=== PATIENT | female | born 1995 | race Caucasian/White ===

== ENCOUNTER → 2022-04-12 08:56 | Outpatient (CLI) | payer BC, OTHER, SELFPAY ==
--- NOTE | 2022-04-12 09:03 | DI.US.S_ITS ---
PROCEDURE: US OB >= 14 WEEKS FETUS INDICATIONS: ANATOMY SCAN OUTSIDE/PRIOR DATING DATA: Last menstrual period (LMP): 11/17/2021. LMP-based estimated date of delivery (JOSSUE): 08/24/2022. First dating scan (date and location): 04/12/2022. Estimated date of delivery (JOSSUE) from first dating scan: 08/25/2022. TECHNIQUE: Real-time scanning was performed of the fetus, with image documentation and biometric measurements. Endovaginal scanning: Not performed. COMPARISON: None. FINDINGS: General: A single living intrauterine gestation is present. Presentation: Vertex. Placenta: Placental position is posterior , without previa. Amniotic fluid index: 14.1 cm, normal range is 5-24 cm. Single deepest vertical pocket is 4.5 cm. heart rate: 140 beats per minute. Maternal cervical canal: 3.4 cm long. Normal lower limit is 2.5 cm. biometrics: Biparietal diameter: 5.0 centimeters, 21 weeks 0 days Head circumference: 17.9 centimeters, 20 weeks 2 days Abdominal circumference: 16.0 centimeters, 21 weeks 1 day Femur length: 3.3 centimeters, 20 weeks 1 day estimated gestational age: 20 weeks 6 days Composite gestational age from present scan: 20 weeks 5 days Estimated weight and percentile: 369 grams, 35th percentile Anatomic survey: Neuro: Ventricles are non-dilated at less than 10 mm. Cisterna magna is normal at 3-11 mm. Cerebellum is normal in size and morphology. Nuchal skin fold: Normal at less than 6 mm between 14-21 weeks gestational age. Face: Nose and lips, facial profile are normal. Spine: No evidence for spina bifida. Heart: 4-chambered heart is present, with normal ventricular outflow tracts. Left ventricular echogenic intracardiac focus. Diaphragm: Diaphragm is intact. Stomach: Left-sided stomach is present. Kidneys: No hydronephrosis. Normal is less than 5 mm in 2nd trimester, less than 7 mm in 3rd trimester. Cord: 3-vessel cord has orthotopic insertion. Bladder: Normal in size. Extremities: All 4 extremities identified. IMPRESSION: 1. Single living intrauterine . 2. A left ventricular echogenic intracardiac focus is present. The 2nd trimester anatomy survey is otherwise normal. Recommend correlation with maternal age, ethnicity, and aneuploidy risk assessment results such as serum screening or cell free DNA testing as this finding in the context of low risk cell free DNA screening is likely a normal variant and not clinically significant. We strive to produce accurate, complete, and clear reports of imaging services. To assist us in improving patient care, this report was composed using standard report templates and voice recognition software. Therefore, it may contain abnormal punctuation, insertions and/or omissions. Occasional wrong-word or sound-alike substitutions may occur. Though we review the report and make efforts to correct it, we do recommend that the report be read carefully in proper context to recognize any text inaccuracies. Dictated by: Redd Wong M.D. on 04/12/2022 at 12:50 Approved by: Redd Wong M.D. on 04/12/2022 at 13:04
== END ==
PROVIDERS: Referring Provider Nurse Practitioner Obstetrics & Gynecology; Visit Provider Nurse Practitioner Obstetrics & Gynecology
DX: Z34.92 Encounter for supervision of normal pregnancy, unspecified, second trimester (principal); Z3A.20 20 weeks gestation of pregnancy
CPT/HCPCS: 76811

== ENCOUNTER → 2022-05-15 07:52 | Outpatient (CLI) | payer OTHER, MEDICAID, SELFPAY ==
[2022-05-15 09:28] LABS: Hematocrit 34.9 % (36-46)
[2022-05-15 10:08] LABS: Glucose Fasting 77 mg/dL (70-100)
[2022-05-15 10:09] LABS: Glucose 1 Hour 169 mg/dL (70-170)
[2022-05-15 13:39] LABS: Glucose Tol Interpretation INTERPRETATION
[2022-05-15 13:48] LABS: Mean Corpuscular HGB Conc 34.3 % (30-36); Mean Corpuscular Hemoglobin 30.4 PG (26-34); Mean Corpuscular Volume 88.7 fL (80-100); Platelet Count 173 X10^3/uL (150-400); Red Blood Cell Count 3.95 X10^6/uL (4.0-5.2); Red Cell Distribution Width 13.7 % (11.6-14.8); White Blood Cell Count 7.7 X10^3/uL (4.5-11.0)
[2022-05-15 16:50] LABS: Glucose 2 Hour 100 mg/dL (70-140)
== END ==
PROVIDERS: Referring Provider Nurse Practitioner Obstetrics & Gynecology; Visit Provider Nurse Practitioner Obstetrics & Gynecology
DX: Z34.90 Encounter for supervision of normal pregnancy, unspecified, unspecified trimester (principal); Z13.1 Encounter for screening for diabetes mellitus; Z3A.26 26 weeks gestation of pregnancy
CPT/HCPCS: 36415; 82951; 82952; 85027

== ENCOUNTER 2022-08-26 16:48 | Inpatient (IN) | payer OTHER, MEDICAID, SELFPAY ==
--- NOTE | 2022-08-26 17:02 | P.HPOB_ITS ---
OB HPI Date/Time Date of admission: 08/26/22 Date Patient Seen: 08/26/22 Time Patient Seen: 17:02 History of Present Condition Chief complaint: OB : 1 Para: 0 Estimated Date of Delivery: 08/24/22 Estimated Gestational Age (weeks): 40.2 Narrative: Joel Oates is a 27 year old female @ [id number] by LMP and 10 wk US who presents for evaluation of labor. Began to feel contractions around noon that steadily progressed in frequency and intensity, now breathing through strong contractions every 3-4 minutes. Some bloody mucus discharge this afternoon. No leaking of fluid. Desires epidural. Partner and mother are present and supportive. Uncomplicated care w/ CNMs. History of Present care: good care, initiated at week # (10), number of visits (11) and pounds weight gain (40) Dating criteria: LMP confirmed by 1st trimester US Ultrasounds: normal mid trimester US Obstetrical complications: none Medical complications: none Preadmission Labs Blood type: A (-) negative -: Antibody screen: negative, GBS status: negative, HBsAG: negative, HIV: negative and RPR/VDLR: negative -: Chlamydia screen: not detected and Gonorrhea screen: not detected -: Rubella: immune and Varicella: immune HCT: 34.9 HCAB: negative Cell-free DNA: Negative Narrative: 2hr gtt: 77, 169, 100 Evaluation Evaluation Baseline heart rate: 125 Variability: Moderate (11-25) monitor accelerations: Present Monitor Decelerations: Absent Contraction Frequency (minutes): 4 Uterine Contraction Intensity: Moderate Status: Category l Dilation (cm): 5 Effacement (%): 90 Dilation: >/=5 cm Effacement: >/=80% station: -1 Position of cervix: mid Consistency: soft King score: 11 [facility] Medical History (Updated 08/26/22 @ 17:11 by Kanwal Juarez CNM) Anxiety Family History (Updated 08/26/22 @ 17:11 by Kanwal Juarez CNM) Grandmother Age: 85 Diabetes mellitus Father Depression Meds Home Medications and Allergies Allergies Allergy/AdvReac Type Severity Reaction Status Date / Time amoxicillin [AMOXICILLIN] Allergy Unknown Unverified 10/03/17 12:33 Review of Systems Review of Systems ROS: Yes All systems reviewed with the patient and are negative except as otherwise documented OB Exam Vital signs Blood Pressure: 135/78 Pulse Rate: 74 Temperature: 36.7 F Resp Effort & Inspection: normal respiratory effort and able to speak in complete sentences Auscultation: clear to auscultation bilaterally Cardio Rate: regular rate Rhythm: regular rhythm Heart Sounds: S1 normal and S2 normal Presentation: vertex Assessment and Plan Assessment and Plan Assessment and Plan narrative: A: Term [place] Active labor Rh NEGATIVE (Partner also Rh Negative) No indication for GBS prophylaxis Cat I FHR tracing P: Admit, routine labor orders. Expectant management of labor. Epidural consult when requested. Reassess in 4 hours or sooner, PRN.
[2022-08-26 17:16] VITALS: BP 135/78; PULSE 74; TEMP 2.6; TEMP 36.7
[2022-08-26 17:45] LABS: Add Manual Diff / Slide Review NO; Basophils Absolute Auto 0 /uL (0-100); Basophils Percent Auto 0.3 % (0-2); Eosinophils Absolute Auto 0 /uL (0-450); Eosinophils Percent Auto 0.1 % (2-4); Hematocrit 34.5 % (36-46); Hemoglobin 11.5 g/dL (12.0-16.0); Lymphocytes Absolute Auto 1700 /uL (1100-4500); Lymphocytes Percent Auto 16.3 % (25-40); Mean Corpuscular HGB Conc 33.4 % (30-36); Mean Corpuscular Hemoglobin 27.5 PG (26-34); Mean Corpuscular Volume 82.2 fL (80-100); Monocytes Absolute Auto 800 /uL (0-900); Monocytes Percent Auto 7.3 % (3-14); Neutrophils Absolute Auto 7900 /uL (1500-7000); Platelet Count 149 X10^3/uL (150-400); Red Cell Distribution Width 14.5 % (11.6-14.8); White Blood Cell Count 10.5 X10^3/uL (4.5-11.0)
[2022-08-26 18:05] LABS: COVID19 - ADMIT (NP swab/PCR) Negative (Negative)
[2022-08-26 18:37] VITALS: BP 130/74
--- NOTE | 2022-08-27 02:03 | PM.OBPRVD ---
Labor & Delivery Delivery date: 08/27/22 Intrapartal Events: None Cervical ripening method: none Induction method: none Delivery monitor: external FHT and external uterine Route of delivery: Episiotomy description: None L&D Laceration Description: None Estimated blood loss (mL): 100 Anesthesia Type: Epidural Narrative: Patient worked with anesthesia for several hours to achieve adequate pain relief. Progressed quickly to C/C/+2 at 0020. Coaching, encouragement and strong maternal efforts led to NSVB of a vigorous baby girl in REJI position. [place] was delivered through a single loose nuchal cord and the shoulders delivered easily, without additional maneuvers. [place] placed on maternal abdomen for drying and skin to skin. 30 units of pitocin in 500mL LR was started at 250mL/hr for AMTSL. After cessation of pulsation, the cord was double clamped by CNM and cut by FOB. Gentle cord traction and a single maternal push led to spontaneous, Schultze delivery of an apparently intact placenta, membranes and 3VC. Fundus immediately firm and bleeding minimal. QBL 100mL. both mother and baby stable and skin to skin as I left the room. Baby 1: gender: Female Presentation: vertex Position: Left Occiput Anterior Placenta delivery description: Spontaneous Cord Vessel Description: 3 Vessels, Nuchal Cord and Loose score (1 min): 8 score (5 min): 9 weight: 3.84 kg Plan for aftercare: Routine care
[2022-08-27] MEDS: KETOROLAC 30 MG/ML VIAL IV (04:00)
[2022-08-27] MEDS: DERMOPLAST SPRAY 20% 60 ML 1 SPRAY TOP (04:13)
[2022-08-27] MEDS: LANOLIN OINT 7 GM 1 APPLIC TOP (04:14)
--- NOTE | 2022-08-27 05:20 | PC.NURSE ---
Patient given 1 bag of premix oxytocin after delivery to control bleeding. Unable to document it in MAR
[2022-08-27] MEDS: ACETAMINOPHEN 325 MG TABLET 650 MG PO (18:08)
[2022-08-27] MEDS: IBUPROFEN 600 MG TABLET PO (18:09)
--- NOTE | 2022-08-28 07:48 | P.DS_ITS ---
Discharge Providers Provider Date of admission: 08/26/22 16:48 Discharge Date: 08/28/22 Consults: 08/26/22 16:59 Consult to Anesthesiology Urgent Comment: Consulting Provider: Anesthesiologist Reason for consultation: Epidural Has provider been notified: No 08/28/22 02:02 Consult to Principal Account Clerk Routine Comment: Discharge provider: Kanwal Juraez CNM Summary Hospital Course Date Patient Seen: 08/28/22 Time Patient Seen: 07:48 Diagnoses: O80 Hospital Course: PPD1: Stable s/p NSVB with intact perineum. Voiding, ambulating and independently. Tolerating a general diet. Pain is well controlled with PO medication. Vaginal bleeding is light without clots. Feeling ready for dischargw to home. Partner remains present and supportive. Peripartum Data Infant Delivery Method: Natural Vaginal Laceration Description: None Episiotomy description: None Procedures: 080 complications: none 1: Gender: Female Disposition of : home Discharge Diagnosis (1) Encounter for full-term uncomplicated delivery: Status: Acute Status at Discharge Cognitive/behavioral status at discharge: oriented and calm Functional status at discharge: independent ambulation Overall status at discharge: patient is progressing back to baseline Time Spent with Patient Time attestation: Total time spent providing and/or coordinating discharge services: Time spent: Less than 30 minutes Objective Labs 08/26/22 17:30 Exam Vital Signs (past 8 hours): BP 103/52mmHg, HR 93bpm, RR 16/min, T 98.3F Temporal Other: Fundus firm @ U-1, lochia light, no clots. Perineum intact. Discharge Plan Discharge Plan Patient Disposition: Home Discharge orders & Medications Prescriptions: New ibuprofen 600 mg Tablet 600 mg PO Q6HR PRN (Reason: Pain, Mild (1-3)) 14 Days Qty: 60 0RF No Action No Known Home Medications Follow up/Referrals: Kanwal Juarez CNM [[facility]] - (Follow-up 2wk 09/04/22 @ 2pm Follow-up 6wk 10/03/22 @ 1:45pm) Diet/Activity/Treatments Diet: Diet as Tolerated and Regular Activity: pelvic rest x 6 weeks Skin/Wound/Dressing Care Report to your healthcare provider any signs of infection, such as:: chills, fever, increased pain, unusual drainage and unusual redness Visit Report/Discharge Packet Instructions: Depression Stand Alone Forms: Patient Portal/API
[2022-08-28] MEDS: ACETAMINOPHEN 325 MG TABLET 650 MG PO (08:30)
[2022-08-28] MEDS: IBUPROFEN 600 MG TABLET PO (08:30)
== END 2022-08-28 10:00 | disposition home or self-care (01) | DRG 560 ==
PROVIDERS: Admitting Provider Nurse Practitioner Obstetrics & Gynecology; Referring Provider Nurse Practitioner Obstetrics & Gynecology; Visit Provider Nurse Practitioner Obstetrics & Gynecology
DX: O80 Encounter for full-term uncomplicated delivery (principal); Z3A.40 40 weeks gestation of pregnancy; Z37.0 Single live birth
CPT/HCPCS: 36415; 59050; 85025; 86850; 86900; 86901; 87635; C9803; G0379; J1885; J3010

== ENCOUNTER → 2024-07-04 13:26 | Outpatient (CLI) | payer OTHER, SELFPAY ==
--- NOTE | 2024-07-04 13:27 | DI.US.S_ITS ---
PROCEDURE: US OB >= 14 WEEKS FETUS INDICATIONS: ANATOMY SCAN OUTSIDE/PRIOR DATING DATA: Last menstrual period (LMP): 02/11/24. LMP-based estimated date of delivery (JOSSUE): 11/17/24. First dating scan (date and location): Not available. Estimated date of delivery (JOSSUE) from first dating scan: Not applicable. The calculations are made using the working JOSSUE of 11/17/24. TECHNIQUE: Real-time scanning was performed of the fetus, with image documentation and biometric measurements. Endovaginal scanning: No COMPARISON: Non FINDINGS: General: A single living intrauterine gestation is present. Presentation: Vertex. Placenta: Placental position is anterior , without previa. There is a velamentous placental cord insertion. Amniotic fluid index: 19.2 cm, normal range is 5-24 cm. Single deepest vertical pocket is 5.6 cm. heart rate: 140 beats per minute. Maternal cervical canal: Closed and 3.0 cm long. Normal lower limit is 2.5 cm. biometrics: Biparietal diameter: 5.2 cm, 21 weeks five days Head circumference: 18.3 cm, 20 weeks five days Abdominal circumference: 15.9 cm, 21 weeks 0 days Femur length: 3.3 cm, 20 weeks three days Clinically estimated gestational age: 20 weeks four days Composite gestational age from present scan: 21 weeks 0 days Estimated weight and percentile: 378 g, 58th percentile Anatomic survey: Neuro: Ventricles are non-dilated at less than 10 mm. Cisterna magna is normal at 3-11 mm. Cerebellum is normal in size and morphology. Nuchal skin fold: Normal at less than 6 mm between 14-21 weeks gestational age. Face: Nose and lips, facial profile are normal. Spine: No evidence for spina bifida. Heart: 4-chambered heart is present, with normal ventricular outflow tracts. Diaphragm: Diaphragm is intact. Stomach: Left-sided stomach is present. Kidneys: No hydronephrosis. Normal is less than 5 mm in 2nd trimester, less than 7 mm in 3rd trimester. Cord: 3-vessel cord has orthotopic insertion. Bladder: Normal in size. Extremities: All 4 extremities identified. IMPRESSION: Single live intrauterine with estimated weight at the 50th percentile. Symmetric growth and normal anatomy. Anterior placenta with a velamentous cord insertion. Closed cervix and normal amniotic fluid volume. We strive to produce accurate, complete, and clear reports of imaging services. To assist us in improving patient care, this report was composed using standard report templates and voice recognition software. Therefore, it may contain abnormal punctuation, insertions and/or omissions. Occasional wrong-word or sound-alike substitutions may occur. Though we review the report and make efforts to correct it, we do recommend that the report be read carefully in proper context to recognize any text inaccuracies. Dictated by: Ramona Davis M.D. on 07/04/2024 at 22:14 Approved by: Ramona Davis M.D. on 07/04/2024 at 22:21
== END ==
PROVIDERS: Referring Provider Advanced Practice Midwife; Visit Provider Advanced Practice Midwife
DX: O43.122 Velamentous insertion of umbilical cord, second trimester (principal); Z3A.21 21 weeks gestation of pregnancy
CPT/HCPCS: 76811

== ENCOUNTER → 2024-08-22 07:38 | Outpatient (CLI) | payer OTHER, SELFPAY ==
--- NOTE | 2024-08-22 07:39 | DI.US.S_ITS ---
PROCEDURE: US OB LIMITED INDICATIONS: VELAMENTOUS CORD INSERTION. GROWTH. OUTSIDE/PRIOR DATING DATA: Last menstrual period (LMP): 02/11/24. LMP-based estimated date of delivery (JOSSUE): 11/17/24. First dating scan (date and location): Not available. Estimated date of delivery (JOSSUE) from first dating scan: Not applicable. The calculations are made using the working JOSSUE of 11/17/24. TECHNIQUE: Real-time scanning was performed of the fetus for biometric measurements, with image documentation. Color and pulse Doppler interrogation was also performed of the umbilical artery near its insertion into the placenta. Endovaginal scanning: Not performed COMPARISON: None. FINDINGS: General: A single living intrauterine gestation is present. Presentation: Vertex. Placenta: Placental position is anterior , without previa. Amniotic fluid index: 18.6 cm, normal range is 5-24 cm. Single deepest vertical pocket is 6.1 cm. heart rate: 143 beats per minute. Maternal cervical canal: Closed and 3.6 cm long. Normal lower limit is 2.5 cm. Biparietal diameter 7.6 cm, 30 weeks two days Head circumference 26.9 cm, 29 weeks three days Abdominal circumference 25.3 cm, 29 weeks three days Femur length 5.5 cm, 29 weeks 0 days Clinically estimated gestational age 27 weeks four days Composite gestational age today 29 weeks four days Estimated weight 1380 g, 95th percentile There is a velamentous cord insertion along the superior aspect of the anterior placenta. No other placental abnormalities were demonstrated. IMPRESSION: Single live intrauterine with estimated weight at the 95th percentile. Composite gestational age is two weeks ahead of the expected gestational age. Velamentous cord insertion along the superior aspect of the anterior placenta. We strive to produce accurate, complete, and clear reports of imaging services. To assist us in improving patient care, this report was composed using standard report templates and voice recognition software. Therefore, it may contain abnormal punctuation, insertions and/or omissions. Occasional wrong-word or sound-alike substitutions may occur. Though we review the report and make efforts to correct it, we do recommend that the report be read carefully in proper context to recognize any text inaccuracies. Dictated by: Ramona Davis M.D. on 08/22/2024 at 13:41 Approved by: Ramona Davis M.D. on 08/22/2024 at 13:55
== END ==
PROVIDERS: Referring Provider Advanced Practice Midwife; Visit Provider Advanced Practice Midwife
DX: O43.122 Velamentous insertion of umbilical cord, second trimester (principal); Z3A.27 27 weeks gestation of pregnancy
CPT/HCPCS: 76815

== ENCOUNTER → 2024-10-10 14:03 | Outpatient (CLI) | payer OTHER, SELFPAY ==
--- NOTE | 2024-10-10 14:05 | DI.US.S_ITS ---
PROCEDURE: US OB FOLLOW UP INDICATIONS: GROWTH OUTSIDE/PRIOR DATING DATA: The calculations are made using the JOSSUE of 11/17/2024. TECHNIQUE: Real-time scanning was performed of the fetus, with image documentation and biometric measurements. Endovaginal scanning: Not performed COMPARISON: [facility], OB LIMITED, 08/22/2024, 8:09. FINDINGS: General: A single living intrauterine gestation is present. Presentation: Vertex. Placenta: Placental position is anterior , without previa. Amniotic fluid index: 15.2 cm, normal range is 5-24 cm. Single deepest vertical pocket is 5.2 cm. heart rate: 121 beats per minute. Maternal cervical canal: 4.7 cm long. Normal lower limit is 2.5 cm. biometrics: Biparietal diameter: 9.0 cm, 36 weeks 2 days Head circumference: 32.2 cm, 36 weeks 3 days Abdominal circumference: 33.6 cm, 37 weeks 4 days Femur length: 6.8 cm, 35 weeks 1 day Clinically estimated gestational age: 34 weeks 4 days Composite gestational age from present scan: 36 weeks 3 days Estimated weight and percentile: 3001 g, 94th percentile Other: Velamentous cord insertion is not well seen secondary to positioning. IMPRESSION: 1. Single live intrauterine consistent with 36 weeks and 3 days. Estimated weight is in the 94th percentile. 2. Velamentous cord insertion is not well seen secondary to positioning. We strive to produce accurate, complete, and clear reports of imaging services. To assist us in improving patient care, this report was composed using standard report templates and voice recognition software. Therefore, it may contain abnormal punctuation, insertions and/or omissions. Occasional wrong-word or sound-alike substitutions may occur. Though we review the report and make efforts to correct it, we do recommend that the report be read carefully in proper context to recognize any text inaccuracies. Dictated by: Joseph Mckay M.D. on 10/10/2024 at 18:28 Approved by: Joseph Mckay M.D. on 10/10/2024 at 18:30
== END ==
PROVIDERS: PCP Physician Assistant; Referring Provider Nurse Practitioner Obstetrics & Gynecology; Visit Provider Nurse Practitioner Obstetrics & Gynecology
DX: O43.122 Velamentous insertion of umbilical cord, second trimester (principal); Z3A.34 34 weeks gestation of pregnancy
CPT/HCPCS: 76816

== ENCOUNTER 2024-11-08 11:14 | Inpatient (IN) | payer OTHER, SELFPAY ==
--- NOTE | 2024-11-08 12:27 | P.HPOB_ITS ---
OB HPI Date/Time Date of admission: 11/08/24 Date Patient Seen: 11/08/24 Time Patient Seen: 12:30 History of Present Condition Chief complaint: labor : 2 Para: 1 Estimated Date of Delivery: 11/17/24 Estimated Gestational Age (weeks): 38w5d Narrative: Joel Oates is a 29 year old female at 38w5d by LMP and confirmed by 11 week ultrasound here with increasing intensity of contractions. Was having lots of mild contractions yesterday; slept 1999 - 07 and awoke with intense contractions. Feeling pain in her back and messaged about bloody show just after 0930 today. Denies loss of fluid. Baby has been moving well. She is here with her , Tray. She has had an uncomplicated except for diagnosis of velamentous cord on an anterior placenta, so has had normal antepartum testing since 36 weeks and 29 and 36 week growth ultrasounds show EFW 94-95%ile. Eda are excited to meet their son, Luis Longo. History of Present care: good care (initiated at week 11, 9 visits, and 39 lb weight gain) Dating criteria: LMP confirmed by 1st trimester US Ultrasounds: abnormal US findings Abnormal ultrasound findings: velamentous cord insertion Obstetrical complications: none Medical complications: none Preadmission Labs Blood type: A (-) negative -: Antibody screen: negative, Cystic fibrosis screen: unknown, GBS status: negative, HBsAG: negative, HIV: negative, HSV 1: negative, HSV 2: negative and RPR/VDLR: negative -: Chlamydia screen: not detected and Gonorrhea screen: not detected -: Rubella: immune and Varicella: immune HCT: 33.6 HCAB: negative PAP: Normal Quad screen: Normal (MsAFP negative) Cell-free DNA: NIPT neg x 3 1 hr GTT: 135 Prior (ies) History: Hx # Term Pregnancies: 1 Hx # Pregnancies: 0 Number of Living Children: 1 Multiple births: 0 Spontaneous abortions: 0 Ectopic pregnancies: 0 Elective abortions: 0 Evaluation Evaluation Baseline heart rate: 135 Variability: Moderate (11-25) monitor accelerations: Periodic Monitor Decelerations: Absent Contraction Frequency (minutes): 7 Uterine Contraction Intensity: Mild Status: Category l Dilation (cm): 5 Effacement (%): 90 Dilation: >/=5 cm Effacement: >/=80% station: -1 Position of cervix: posterior Consistency: soft King score: 10 [facility] Medical History Anxiety Surgical History (Updated 11/08/24 @ 14:42 by Kirti Alva CNM, RAMU) S/P skin biopsy Family History (Updated 11/08/24 @ 14:43 by Kirti Alva CNM, RAMU) Grandmother Age: 88 Diabetes mellitus Cancer Depression Father Depression Mother Hypertension Thyroid disease Meds Home Medications and Allergies Allergies Allergy/AdvReac Type Severity Reaction Status Date / Time Penicillins Allergy Intermediate Verified 11/08/24 13:58 adhesive Allergy Mild Redness of Verified 11/08/24 13:58 Skin chromic Allergy Unknown Uncoded 11/08/24 13:58 Review of Systems Review of Systems Narrative: all negative except for stated in HPI OB Exam Vital signs Blood Pressure: 116/72 Pulse Rate: 89 Respiratory Rate: 16 Temperature: 97.1 F Resp Effort & Inspection: normal respiratory effort Auscultation: clear to auscultation bilaterally Cardio Rate: regular rate Rhythm: regular rhythm Heart Sounds: S1 normal and S2 normal GI Inspection: normal to inspection Other: Gravid uterus External Female Exam: Yes normal external appearance Presentation: vertex Objective Labs 11/08/24 12:25 Assessment and Plan Assessment and Plan Assessment and Plan narrative: at 38w5d / Multip at early term Intact membranes Early labor Velamentous cord insertion Allergy to penicillins, adhesives, chromic suture Rh negative GBS negative FHR Category 1 History of ineffective epidural Plan: Admit to L&D Consult with anesthesia regarding desired epidural; plan for epidural when desired. Plan for spontaneous placental delivery with velamentous cord in mind. Anticipate NSVB. Time-Based Coding :: [TOTAL MINUTES] spent with patient and on the chart (including review of chart, obtaining history, exam, reviewing outside data, placing orders, documenting exam and treatment plan, and counseling patient) on [DATE].
[2024-11-08 12:45] LABS: Add Manual Diff / Slide Review NO; Basophils Absolute Auto 0 /uL (0-100); Basophils Percent Auto 0.2 % (0-2); Eosinophils Absolute Auto 0 /uL (0-450); Eosinophils Percent Auto 0.1 % (2-4); Hematocrit 33.6 % (36-46); Hemoglobin 11.3 g/dL (12.0-16.0); Lymphocytes Absolute Auto 1300 /uL (1100-4500); Lymphocytes Percent Auto 12.6 % (25-40); Mean Corpuscular HGB Conc 33.6 % (30-36); Mean Corpuscular Hemoglobin 27.4 PG (26-34); Mean Corpuscular Volume 81.6 fL (80-100); Monocytes Absolute Auto 700 /uL (0-900); Monocytes Percent Auto 7.3 % (3-14); Neutrophils Absolute Auto 8100 /uL (1500-7000); Neutrophils Percent Auto 79.8 % (50-75); Platelet Count 173 X10^3/uL (150-400); Red Blood Cell Count 4.12 X10^6/uL (4.0-5.2); Red Cell Distribution Width 15.2 % (11.6-14.8); White Blood Cell Count 10.2 X10^3/uL (4.5-11.0)
[2024-11-08] MEDS: LACTATED RINGERS 1,000 ML 1000 ML IV (13:22)
[2024-11-08] MEDS: fentaNYL 100 MCG/2 ML INJ IV (14:05)
[2024-11-08 14:06] VITALS: BP 116/72; RESP 16
[2024-11-08] MEDS: LACTATED RINGERS 1,000 ML 100 ML IV (14:06)
[2024-11-08 14:11] VITALS: PULSE 89
--- NOTE | 2024-11-08 14:44 | PM.AN.REGBLK ---
Regional Block Pre-procedure Procedure: Continuous Lumbar Epidural for L&D (with CSE) PMH/ROS narrative: healthy 29yr old requesting epidural for PSH/Anesthesia history narrative: wisdom teeth ASA Class: II Labs: Hct 33.6 % (36-46) L 11/08/24 12:25 Plt Count 173 X10^3/uL (150-400) 11/08/24 12:25 Medications: Current Medications Generic Name Dose Route Start Last Admin Trade Name Freq PRN Reason Stop Dose Admin Calcium Carbonate 1,000 mg 11/08/24 12:16 Calcium Carbonate 500 Mg Tab PO Q2HR PRN Dyspepsia Carboprost Tromethamine 250 mcg 11/08/24 12:16 Carboprost 250 Mcg/Ml Ampul IM Q90M PRN Bleeding Fentanyl 100 mcg 11/08/24 12:16 11/08/24 14:05 Fentanyl 100 Mcg/2 Ml Inj IV 100 mcg Q1H PRN Administration Pain, Severe (7-10) Lactated Ringer's 1,000 mls @ 100 mls/hr 11/08/24 12:30 11/08/24 14:06 Lactated Ringers IV 11/08/24 22:29 100 mls/hr CONT KAYLEIGH Administration Oxytocin/Lactated Ringer's 30 unit in 500 mls @ 200 mls/hr 11/08/24 12:16 Oxytocin Premix IV CONT PRN Bleeding Protocol Tranexamic Acid 1,000 mg/ 100 mls @ 600 mls/hr 11/08/24 12:16 Sodium Chloride IV NOW PRN Bleeding Lidocaine HCl 20 ml 11/08/24 12:16 Lidocaine 1% 20 Ml INJ INTRA-OP PRN Post Delivery Methylergonovine Maleate 0.2 mg 11/08/24 12:16 Methylergonovine 0.2 Mg Tablet PO Q6HR PRN Heavy Bleeding Methylergonovine Maleate 0.2 mg 11/08/24 12:16 Methylergonovine 0.2 Mg/Ml Vial IM NOW PRN Bleeding Mineral Oil 30 ml 11/08/24 12:16 Mineral Oil 30 Ml Udc TOP PRN PRN Version Misoprostol 800 mcg 11/08/24 12:16 Misoprostol 200 Mcg Tablet OR NOW PRN Bleeding Misoprostol 400 mcg 11/08/24 12:16 Misoprostol 200 Mcg Tablet SL NOW PRN Bleeding Naloxone HCl 0.2 mg 11/08/24 12:16 Naloxone 0.4 Mg/Ml Vial IV Q2MIN PRN Opiate Reversal Ondansetron HCl 4 mg 11/08/24 12:16 Ondansetron 4 Mg/2 Ml Inj IV Q4HR PRN Nausea And Vomiting Oxytocin 10 unit 11/08/24 12:16 Oxytocin 10 Unit/Ml Vial IM NOW PRN Bleeding Allergies: Allergies Allergy/AdvReac Type Severity Reaction Status Date / Time Penicillins Allergy Intermediate Verified 11/08/24 13:58 adhesive Allergy Mild Redness of Verified 11/08/24 13:58 Skin chromic Allergy Unknown Uncoded 11/08/24 13:58 --: Epidural at L3-4 Sterile prep/drape. Pt very reactive to touch, prep and local. 1% Xylo 17g H epidural space found with difficulty due to patient having trouble discerning pain from pressure. Complaint of left foot tingling and hip pain as placing CSE. Midlined confirmed by touch and patient questioning. Sensation seemed to be with needle movements, tho would go away. Epidural space found at 8cm and 27g W used for CSE. As injecting for CSE patient complained again of pain. Injection stopped -0.5cc 0.25% marcaine given. Attempted catheter placement and as catheter would have been leaving needltip patient again complained of pain/pressure. (Placing felt completely normal from provider standpoint.) Decision made to pull epidural needle and try L4-5. At L4-5 1% Xylo 17g H. Patient continued to be very reactive to touch as well as small needle movements. Epidural needle advanced to 4cm. (Epidural space was not found.) Decision to give fentanyl and re-attempt. After fentanyl back to L3-4 epidural space found again easily at 8cm with no complaints of pain or parathesias. Catheter threaded to 14 cm and taped in place. Negative test dose. infusion started at 1438. The documented note below is for the 3rd epidural attempt. Procedure Insertion date: 11/08/24 Insertion time: 14:30 Prep/Local: 1% lidocaine (chloroprep) Interspace: L3-4 Patient position: sitting Needle: 18 gauge Ubaldo Loss of resistance with: saline ORLANDO at (cm): 8 Catheter placed at SKIN (cm): 14 Catheter in SPACE (cm): 6 Sensory level: T9 Insertion: Yes Paresthesia with insertion Initial Medications TEST DOSE time: 14:25 BOLUS DOSE time: 14:35 BOLUS DOSE (mL): 5 BOLUS DOSE med: 0.25% bupivacaine Infusion Initial rate (mL/hr): 10 Post-procedure Anesthesia date START: 11/08/24 Anesthesia time START: 13:28 Anesthesia date END: 11/08/24 Anesthesia time END: 23:04 Post-procedure Anesthesia Assessment: Yes CV function: HR/BP stable, Yes Resp function: RR/sat/airway adequate, Yes Post-op hydration adequate, Yes Pain control adequate, Yes Nausea & vomiting absent, Yes Temperature > 36 C and Yes Mental status appropriate
[2024-11-08 14:58] VITALS: TEMP 36.2
--- NOTE | 2024-11-08 16:17 | PM.OBPNLAB ---
Date/Time Date Patient Seen: 11/08/24 Time Patient Seen: 16:32 Pain Control Pain control: tolerating well, epidural and narcotic analgesia Comments: Vital Signs: SpO2: 99% HR: 91 bpm BP: 106/62 MAP: 78 Pelvic Exam Dilation (cm): 6.5 Effacement (%): 95 station: -1 Amniotic membrane status: Intact Contractions Contractions on admission: irregular Monitor mode: External Contraction frequency (min): 5 Contraction duration (min): 1 Contraction pattern: Regular Contraction intensity: Strong/Firm Status status: Category l Heart Rate Baseline: 125 Monitor Accelerations: Absent Monitor Decelerations: Absent Monitor Variability: Moderate Assessment and Plan Assessment: active labor Plan: continuous present management Comments: Assessment: at 38w4d Allergy to chromic, adhesive, and PCNs active labor GBS neg Rh neg Velamentous cord insertion FHR Cat 1 Intact membranes Plan: Cervical exam now, repeat in 3-4 hours or sooner PRN Anticipate NSVB Offered ROM, client declined Continue position changes
--- NOTE | 2024-11-08 20:47 | PM.OBPNLAB ---
Date/Time Date Patient Seen: 11/08/24 Time Patient Seen: 20:48 Pain Control Pain control: epidural Comments: HR: 81 bpm SpO2: 98% BP: 119/72 T: 97.9 F Pelvic Exam Dilation (cm): 8 Effacement (%): 95 station: 0 Amniotic membrane status: Bulging Contractions Monitor mode: External Contraction frequency (min): 3 Contraction duration (min): 1 Contraction pattern: Regular Contraction intensity: Strong/Firm Status status: Category l Heart Rate Baseline: 135 Monitor Accelerations: Absent Monitor Decelerations: Absent Monitor Variability: Moderate Assessment and Plan Assessment: active labor Plan: continuous present management Comments: Assessment: at 38w5d Epidural for pain management Active labor FHR Cat I tracing Allergy to PCNs, adhesive, and chromic Increased bloody show Plan: Anticipate NSVB Continue pumping to augment labor Cervical exam
[2024-11-08] MEDS: FENT 2MCG/ML BUPIV 0.125% EPI 200 MCG/100 ML PLAST..BAG 6 MCG EPIDURAL (21:59)
[2024-11-08] MEDS: OXYTOCIN PREMIX 30 UNIT/500 ML PLAST..BAG 999 UNIT IV (23:20)
--- NOTE | 2024-11-08 23:45 | PM.OBPRVD ---
Labor & Delivery Delivery date: 11/08/24 Delivery Time: 23:04 Intrapartal Events: None Cervical ripening method: none Induction method: none Delivery monitor: external FHT Route of delivery: L&D Laceration Description: Superficial Quantitative Blood Loss: 805 Anesthesia Type: Epidural and Other (IV fentanyl) Narrative: Labor progressed well. Joel reported tingling in her buttocks after placement of the epidural. At 2206, completed cervical exam and patient was complete/0/100%. Upon exam, intact bag of jason noted at the introitus, which ruptured spontaneously with exam. Joel felt the spontaneous urge to push at 2206. She began pushing at 2241 effectively for a short 2nd stage and was talking throughout. FHR was Cat I throughout 2nd stage. NSVB of baby at 2304, shoulders delivered easily. Loose nuchal cord present x1 and baby delivered via somersault. Baby was placed on maternal abdomen when Joel was ready to receive him. Apgars 9/9. They remained skin to skin while cord was cut and placenta was delivered. Placenta delivered spontaneously with large gush/clots at sixteen minutes maternal efforts and appeared to be intact. No bleeding initially after placental delivery so pitocin not started because Joel declined AMTSL. 3 vessel cord clamped and cut by Tray at 10 minutes of life after cord pulsing had stopped. Cord blood collected for blood typing. Perineum inspected and found to be intact. Shallow/tiny periurethral lacerations noted on L. More bleeding noted so pitocin started with Joel's consent. Blood loss measured and estimated loss is 805 mL. Mom and baby left stable and is being initiated. Joel and Tray are thrilled to meet their sonLuis. Kirti GUALLPA, CNM, IBCLC Baby 1: gender: Male Presentation: vertex Position: Left Occiput Anterior Placenta delivery description: Spontaneous Cord Vessel Description: 3 Vessels score (1 min): 9 score (5 min): 9 weight: 3.714 kg Plan for aftercare: Routine care
[2024-11-09] MEDS: ACETAMINOPHEN 325 MG TABLET 650 MG PO ×3 (01:21→13:36)
[2024-11-09] MEDS: WITCH HAZEL/GLYCERIN PADS 1 EACH TOP (01:23)
[2024-11-09] MEDS: LANOLIN OINT 7 GM 1 APPLIC TOP (01:23)
[2024-11-09] MEDS: DERMOPLAST SPRAY 20% 60 ML 1 SPRAY TOP (01:23)
[2024-11-09] MEDS: KETOROLAC 30 MG/ML VIAL IV (03:08)
[2024-11-09 08:51] LABS: Add Manual Diff / Slide Review NO; Basophils Absolute Auto 0 /uL (0-100); Basophils Percent Auto 0.1 % (0-2); Eosinophils Absolute Auto 0 /uL (0-450); Eosinophils Percent Auto 0.1 % (2-4); Hematocrit 27.5 % (36-46); Hemoglobin 9.2 g/dL (12.0-16.0); Lymphocytes Absolute Auto 1700 /uL (1100-4500); Lymphocytes Percent Auto 9.8 % (25-40); Mean Corpuscular HGB Conc 33.5 % (30-36); Mean Corpuscular Hemoglobin 27.3 PG (26-34); Mean Corpuscular Volume 81.5 fL (80-100); Monocytes Absolute Auto 1000 /uL (0-900); Neutrophils Absolute Auto 14400 /uL (1500-7000); Platelet Count 152 X10^3/uL (150-400); Red Blood Cell Count 3.37 X10^6/uL (4.0-5.2); White Blood Cell Count 17.1 X10^3/uL (4.5-11.0)
[2024-11-09] MEDS: IBUPROFEN 600 MG TABLET PO ×2 (09:13→14:53)
--- NOTE | 2024-11-09 16:38 | P.DS_ITS ---
Discharge Providers Provider Date of admission: 11/08/24 11:13 Discharge Date: 11/09/24 Primary care physician: Vicky Sanchez PA-C Consults: 11/09/24 23:39 Consult to [employer] Routine Comment: Discharge provider: Kirti Alva CNM, ARNP Summary Hospital Course Date Patient Seen: 11/09/24 Time Patient Seen: 14:45 Diagnoses: O80 Hospital Course: Joel arrived in early labor, progressed to complete with nipple stimulation using a breast pump as the only augmentation. Epidural given in active labor. SROM just before feeling strong urge to push. Normal 2nd stage, bleeding a large gush with delivery of placenta. QBL 805 mL. Intact perineum. Normal course. . Peripartum Data Infant Delivery Method: Natural Vaginal Laceration Description: None Episiotomy description: None complications: none Hyndman 1: Gender: Male Status at Discharge Cognitive/behavioral status at discharge: oriented and calm Functional status at discharge: independent ambulation Overall status at discharge: patient is progressing back to baseline Time Spent with Patient Time attestation: Total time spent providing and/or coordinating discharge services: Time spent: Less than 30 minutes Specific discharge activities: discharge teaching Objective Labs 11/09/24 08:32 Labs: Laboratory Results - last 24 hr 11/09/24 08:32 WBC 17.1 H D RBC 3.37 L Hgb 9.2 L Hct 27.5 L MCV 81.5 MCH 27.3 MCHC 33.5 RDW 15.0 H Plt Count 152 Neut % (Auto) 84.0 H Lymph % (Auto) 9.8 L Clayton % (Auto) 6.0 Eos % (Auto) 0.1 L Baso % (Auto) 0.1 Neut # (Auto) 24495 H Lymph # (Auto) 1700 Clayton # (Auto) 1000 H Eos # (Auto) 0 Baso # (Auto) 0 Exam Vital Signs (past 8 hours): BP: 98-117/62-76 RR: 15/17/min Temp: 97.9-98.7 F SpO2: 36-100% Other: Fundus firm at U-1, midline. Lochia light Perineum intact with minimal edema Discharge Plan Discharge Plan Patient Disposition: Home Discharge orders & Medications Follow up/Referrals: Vicky Sanchez PA-C [Primary Care Provider] - Kirti Alva, BHARGAV, COLD STRIP FEEDER [Advanced Slide Attendant] - 2 Weeks (2 weeks and 6 weeks as scheduled - see e-mail.) Diet/Activity/Treatments Diet: Diet as Tolerated and Regular Diet comment: extra fiber and fluid for healing Activity: low tsang x 2 weeks Cold/Heat Therapy: as needed for pain Skin/Wound/Dressing Care Skin care: usual care Report to your healthcare provider any signs of infection, such as:: chills, fever, unusual drainage and unusual redness Visit Report/Discharge Packet Instructions: DI for Hemorrhage Stand Alone Forms: Discharge: Care, Patient Portal/API, Stroke Signs & Symptoms Discharge Data Primary Care Provider: Vicky Sanchez I
== END 2024-11-09 19:07 | disposition home or self-care (01) | DRG 807 ==
LOC: LABOR 11-09 16:31 → OB 11-10 09:22 → LABOR 11-10 09:26
PROVIDERS: Admitting Provider Advanced Practice Midwife; PCP Physician Assistant; Referring Provider Advanced Practice Midwife; Visit Provider Advanced Practice Midwife
DX: O43.123 Velamentous insertion of umbilical cord, third trimester (principal); Z37.0 Single live birth; Z3A.38 38 weeks gestation of pregnancy; Z91.048 Other nonmedicinal substance allergy status; Z88.0 Allergy status to penicillin
CPT/HCPCS: 36415; 59050; 85025; 86850; 86900; 86901; G0378; G0379; J1885; J2590; J3010